=== PATIENT | female | born 1955 | race Caucasian/White ===

== ENCOUNTER → 2016-12-12 | Outpatient (CLI) | payer BC ==
[~2016-12-12] MED LIST: ADVAIR PO; FEXO60TA20 PO; LOSA50TA6 PO; MELO-174 PO; PANT40TA3 PO; PANTOPRAZOLE PO; PRED10TA PO; SIMV20TA PO; SIMV5TAB50 PO; SUCR1TAB PO; TRAZ100T15 PO; TRAZ50TA18 PO; TRAZODONE PO
[2016-12-12 07:33] LABS: BASOPHIL # 0.1 10^3/ul (0.0-0.1); BASOPHILS % 0.8 % (0.0-2.0); EOSINOPHILS # 0.2 10^3/ul (0.0-0.5); HEMATOCRIT 39.8 % (37.0-47.0); HEMOGLOBIN 13.2 g/dl (12.0-16.0); LYMPHOCYTES # 3.1 10^3/ul (0.8-2.9); LYMPHOCYTES % 41.3 % (15.0-51.0); MEAN CORPUSCULAR HEMOGLOBIN 29.6 pg (29.0-33.0); MEAN CORPUSCULAR HGB CONC 33.2 g/dl (32.0-37.0); MEAN CORPUSCULAR VOLUME 89.2 fl (82.0-101.0); MEAN PLATELET VOLUME 10.4 fl (7.4-10.4); MONOCYTE # 0.7 10^3/ul (0.3-0.9); MONOCYTES % 9.3 % (0.0-11.0); NEUTROPHILS % 45.3 % (39.0-77.0); PLATELET COUNT 267 10^3/UL (140-415); RED BLOOD COUNT 4.46 10^6/ul (4.20-5.40); RED CELL DISTRIBUTION WIDTH 12.4 % (11.5-14.5); WHITE BLOOD COUNT 7.4 10^3/ul (4.8-10.8)
[2016-12-12 07:57] LABS: ALBUMIN 4.7 g/dl (3.3-4.9); ALBUMIN/GLOBULIN RATIO 1.88; BILIRUBIN,INDIRECT 0.3 mg/dl (0-1.1); BILIRUBIN,TOTAL 0.3 mg/dl (0.2-1.3); CALCIUM 9.8 mg/dl (8.4-10.2); CHOL/HDL RATIO 2.4 RATIO; CREATININE 0.77 mg/dl (0.44-1.00); POTASSIUM 4.5 mmol/L (3.5-5.1); TOTAL PROTEIN 7.2 g/dl (6.1-8.1)
[2016-12-12 08:27] LABS: CANCER ANTIGEN 125 11.2 U/ml (0.0-35.0); CARCINOEMBRYONIC ANTIGEN 1.4 ng/ml (0.0-5.0)
== END | disposition home or self-care (01) ==
LOC: LAB 06:41
PROVIDERS: ATTEND Internal Medicine
DX: D64.9 Anemia, unspecified (principal); E78.5 Hyperlipidemia, unspecified; C80.1 Malignant (primary) neoplasm, unspecified
CPT/HCPCS: 80053; 80061; 82378; 85025; 85651; 86304

== ENCOUNTER → 2017-01-22 | Outpatient (CLI) | payer BC ==
[~2017-01-22] MED LIST changes: -ADVAIR PO; -FEXO60TA20 PO; +IOHEXOL 300MG/ML 150 ML BTL ONE; -MELO-174 PO; -PANTOPRAZOLE PO; -PRED10TA PO; -SIMV5TAB50 PO; +SOD CHLORIDE 0.9% 100 ML ONE; +SODI126M NASAL; -SUCR1TAB PO; -TRAZ100T15 PO; -TRAZODONE PO
--- NOTE | 2017-01-22 22:16 | RADRPT ---
PROCEDURE: CT Abdomen and Pelvis with contrast. CLINICAL INDICATION: Abdominal and pelvic pain. Palpable mass. History of hysterectomy. TECHNIQUE: CT scan of the abdomen and pelvis with contrast was performed. The patient was scanned following the uncomplicated intravenous administration of 90 cc of Omnipaque-300. Coronal and sagit nataliya reformatted images were obtained from the axial source images. Images were reviewed on a [employer] PACS workstation. Total exam DLP is 418.73 mGy-cm. CTDIvol is 8.75 mGy. One or more of t he following dose reduction techniques were used: Automated exposure control, adjustment of the mA a nd/or kV according to patient size, use of iterative reconstruction technique. COMPARISON: None. FINDINGS: Mild emphysematous changes are present at the lung bases. The lung bases are otherwise normal. There is no pleural effusion or pericardial effusion. The liver is normal in size and attenuation. There is a benign cyst in the left hepatic lobe measuri ng 1.4 cm. There is no other focal hepatic lesion. The gallbladder and bile ducts are normal. The spleen is normal in size. There is no focal splenic lesion. Both adrenals are normal with no enlargement or mass. The pancreas is unremarkable with no mass or evidence of pancreatitis. Both kidneys demonstrate normal contrast enhancement. There is a benign cyst inferiorly in the lef t kidney measuring 1.8 cm. There is a nonobstructing 0.4 cm calculus in the lower left kidney. There is no solid renal mass. The abdominal aorta is not dilated. There is calcification in the aorta consistent with atherosclero sis. There is no retroperitoneal lymphadenopathy or mass. There is no pelvic lymphadenopathy or mass. The bladder and distal ureters are normal. The periappendiceal region is unremarkable with no evidence of appendicitis. The appendix is well se en and appears normal. The bowel and mesentery are normal. There is no free fluid or free gas. The osseous structures are unremarkable with no fracture or lytic lesion. IMPRESSION: 1. Emphysematous changes at the lung bases. 2. Benign cyst in the left hepatic lobe. 3. Benign cyst inferiorly in the left kidney. 4. Nonobstructing 0.4 cm calculus in the lower left kidney. 5. Atherosclerosis. 6. Normal appendix. 7. Otherwise unremarkable contrast enhanced CT scan of the abdomen and pelvis. RPTAT: QQ .Josep Sharma MD, MD Date Time Electronically viewed and signed by .Josep Sharma MD, MD on 01/22/2017 22:15 .R/
== END | disposition home or self-care (01) ==
LOC: C/S 15:41
PROVIDERS: ATTEND Internal Medicine
DX: R19.00 Intra-abdominal and pelvic swelling, mass and lump, unspecified site (principal)
CPT/HCPCS: 74177; Q9967

== ENCOUNTER 2017-01-24 07:08 | Emergency (ER) | END 2017-01-24 08:03 | disposition home or self-care (01) | DX: J00 Acute nasopharyngitis [common cold] (principal); I10 Essential (primary) hypertension; F17.210 Nicotine dependence, cigarettes, uncomplicated ==

== ENCOUNTER → 2017-02-01 | Outpatient (CLI) | payer BC ==
[~2017-02-01] MED LIST changes: -IOHEXOL 300MG/ML 150 ML BTL ONE; -SOD CHLORIDE 0.9% 100 ML ONE
--- NOTE | 2017-02-01 16:33 | RADRPT ---
PROCEDURE: XR Chest. CLINICAL INDICATION: Cough. Acute bronchitis. TECHNIQUE: Two views. Frontal and lateral. COMPARISON: 03/22/2016. FINDINGS: The lungs are clear. The heart size is normal. There is no pleural effusion. There is no pneumothorax. IMPRESSION: 1. Normal chest radiograph. 2. No change from 03/22/2016. RPTAT: QQ .Josep Sharma MD, MD Date Time Electronically viewed and signed by .Josep Sharma MD, MD on 02/01/2017 16:33 .R/
== END | disposition home or self-care (01) ==
LOC: RAD 15:43
PROVIDERS: ATTEND Internal Medicine
DX: J20.9 Acute bronchitis, unspecified (principal)
CPT/HCPCS: 71020

== ENCOUNTER 2017-02-15 14:07 | Day surgery (SDC) | payer BC ==
--- NOTE | 2017-01-29 15:13 | CONS ---
DATE OF ADMISSION: 01/24/2017 DATE OF CONSULTATION: 01/24/2017 TYPE OF CONSULTATION: Gastroenterology consultation. Dear Dr. Coreas: I thank you very much for this kind referral. HISTORY OF PRESENT ILLNESS: Ms. Amy Lee is a 61-year-old female patient who has been referred to me for further evaluation of change in the bowel habit with constipation. She also complains of severe lower abdominal pain, no past history of colon neoplasm. Her appetite has been somewhat poo r. There is no history of weight loss. Patient has got gastritis and gastroesophageal reflux disea se and she has been taking Protonix. She is not on nonsteroidal anti-inflammatory agents. No histo ry of gallstones or liver disease. She is hypertensive. Not a diabetic. No heart disease. The pa victorina has got emphysema. She used to be a smoker, now she has quit smoking. No kidney disease. Sh joey also has got hyperlipidemia, no alcohol abuse, no family history of gastrointestinal tract neoplas m. She is status post hysterectomy. ALLERGIES: TO SULFA. MEDICATIONS: 1. Cozaar. 2. Zocor. 3. Protonix. PHYSICAL EXAMINATION: GENERAL: She is 5 feet 2 inches tall and weighs 144 pounds, normal heart sounds. LUNGS: Clear. ABDOMEN: Soft. No masses. Normal bowel sounds. Normal neurological exam. IMPRESSION: 1. Change in the bowel habit with constipation. 2. Lower abdominal pain. 3. The patient needs screening colonoscopy. 4. Gastritis and gastroesophageal reflux disease. 5. The patient is on Protonix. 6. The patient also complains of loss of appetite. 7. Hypertension. 8. Hyperlipidemia. 9. The patient used to be a smoker and she has got emphysema on abdominal CT scan. 10. Status post hysterectomy. ALLERGIES: HISTORY OF ALLERGY TO SULFA. PLAN: 1. High fiber diet. 2. Linzess 145 mcg p.o. daily a.m. before breakfast for constipation. 3. Screening colonoscopy. 4. Because of the emphysema and the patient's age, she needs monitored anesthesia care for the proc edure. The procedure and possible complications are well explained to the patient. She understands and con sents to the procedure. I thank you once again. With warmest personal regards, YESY MATTHEW MD Dictated By: YESY MATTHEW MD GD/NTS Conf#: [id number] [facility]#: [id number]
[~2017-02-15] VITALS: Ht 157.5 cm; Wt 63.4 kg
[2017-02-15] MEDS ORDERED: PROPOFOL 20 ML ONE ×3 (15:30→17:03)
[2017-02-15 16:02] VITALS: Ht 157.5 cm; Wt 63.4 kg
[2017-02-15] MEDS ORDERED: LIDOCAINE 2% (SDV) 5 ML INJ ONE (16:40)
[2017-02-15 16:48] VITALS: BP 188/80; PULSE 85; RESP 20
--- NOTE | 2017-02-15 17:24 | OPPN ---
Date/Time of Note Date/Time of Note DATE: 02/15/17 TIME: 17:23 Operative Report Preoperative Diagnosis Screening colonoscopy Postoperative Diagnosis 3 small colon polyps were removed Internal hemorrhoids Operation/Procedure Performed Colonoscopy and biopsy Surgeon see signature line assistant offset press operator None Anesthesia: MAC Estimated blood loss: none Transfusion Required none Specimen Colon polyps Grafts/Implants none Complications none YESY MATTHEW MD Feb 15, 2017 17:24
--- NOTE | 2017-02-15 17:24 | OPPN ---
Date/Time of Note Date/Time of Note DATE: 02/15/17 TIME: 17:23 Operative Report Preoperative Diagnosis Screening colonoscopy Postoperative Diagnosis 3 small colon polyps were removed Internal hemorrhoids Operation/Procedure Performed Colonoscopy and biopsy Surgeon see signature line press operator assistant None Anesthesia: MAC Estimated blood loss: none Transfusion Required none Specimen Colon polyps Grafts/Implants none Complications none YESY MATTHEW MD Feb 15, 2017 17:24
--- NOTE | 2017-02-15 17:24 | OPPN ---
Date/Time of Note Date/Time of Note DATE: 02/15/17 TIME: 17:23 Operative Report Preoperative Diagnosis Screening colonoscopy Postoperative Diagnosis 3 small colon polyps were removed Internal hemorrhoids Operation/Procedure Performed Colonoscopy and biopsy Surgeon see signature line marketing assistant retail division None Anesthesia: MAC Estimated blood loss: none Transfusion Required none Specimen Colon polyps Grafts/Implants none Complications none YESY MATTHEW MD Feb 15, 2017 17:24
[2017-02-15 17:52] VITALS: BP 136/63; RESP 14
--- NOTE | 2017-02-16 05:08 | GILP ---
DATE OF PROCEDURE: NAME OF PROCEDURES: Colonoscopy and biopsy. SURGEON: Yesy Frances MD PREOPERATIVE DIAGNOSIS: Screening colonoscopy. POSTOPERATIVE DIAGNOSES 1. Colonoscopy all the way to the cecum. 2. Three small colon polyps were removed using the biopsy forceps. 3. Internal hemorrhoids. INDICATION FOR THE PROCEDURE: Ms. Amy Lee is a 61-year-old female patient who noticed a uribe e in the bowel habit. She needed screening colonoscopy. The procedure and possible complications are well explained to the patient, she understood and conse nted to the procedure. DESCRIPTION OF PROCEDURE: Under the influence of anesthesia, the colonoscope was carefully introduc ed in the rectum and under direct vision, it was advanced all the way to the cecum. FINDINGS: The patient had 3 small colon polyps and they were removed using the biopsy forceps. She had internal hemorrhoids. She tolerated the procedure very well and there was no complication from the procedure. At the end of the procedures, she was awake with stable vital signs and she was discharged home to the care of her family. IMPRESSION: 1. Colonoscopy all the way to the cecum. 2. Three small colon polyps were removed using the biopsy forceps. 3. Internal hemorrhoids. PLAN: 1. Await histopathology report. 2. Linzess 145 mcg p.o. daily a.m. before breakfast for constipation. 3. Next screening colonoscopy in 10 years. Dictated By: YESY DUNN/KEYANA Conf#: [id number] DID#: [id number]
== END 2017-02-15 17:52 | disposition home or self-care (01) ==
LOC: GIL 14:07
PROVIDERS: ATTEND Internal Medicine Gastroenterology
DX: Z12.11 Encounter for screening for malignant neoplasm of colon (principal); D12.6 Benign neoplasm of colon, unspecified; K63.5 Polyp of colon; K64.8 Other hemorrhoids; K21.9 Gastro-esophageal reflux disease without esophagitis; K29.70 Gastritis, unspecified, without bleeding; I10 Essential (primary) hypertension; E78.5 Hyperlipidemia, unspecified; Z87.891 Personal history of nicotine dependence; Z88.2 Allergy status to sulfonamides

== ENCOUNTER 2017-08-08 08:58 | Emergency (ER) | END 2017-08-08 11:45 | disposition home or self-care (01) ==

== ENCOUNTER → 2017-09-08 | Outpatient (CLI) | END | disposition home or self-care (01) ==

== ENCOUNTER 2018-04-07 12:59 | Emergency (ER) | END 2018-04-07 15:05 | disposition home or self-care (01) ==

== ENCOUNTER → 2018-04-08 | Outpatient (CLI) | END | disposition home or self-care (01) ==

== ENCOUNTER → 2018-08-13 | Outpatient (CLI) | payer BC ==
[~2018-08-13] MED LIST changes: +HYDR-4011 PO; +IBUP-1542 PO; +LOSA50TA14 PO; -LOSA50TA6 PO; -SODI126M NASAL; -TRAZ50TA18 PO
== END | disposition home or self-care (01) ==
LOC: LAB 06:45
PROVIDERS: ATTEND Internal Medicine
DX: J20.9 Acute bronchitis, unspecified (principal)
CPT/HCPCS: 71046; 80053; 80061; 85025; 85651